=== PATIENT | female | born 1995 | race Caucasian/White ===

== ENCOUNTER 2016-05-18 12:59 | Emergency (ER) | payer MEDICAID ==
[2016-05-18 13:04] VITALS: O2SAT 96
[2016-05-18] MEDS ORDERED: ONDANSETRON 4 MG/2 ML VIAL IVP ONE (13:25)
[2016-05-18] MEDS ORDERED: NS 1,000 ML IV ONE ×2 (13:25→13:38)
[2016-05-18] MEDS ORDERED: HYDROmorphONE/DILAUDID 1 MG/ML SYR IVP ONE (13:25)
--- NOTE | 2016-05-18 13:32 | EDPHY ---
H & P Time Seen by Provider: 05/18/16 13:15 HPI/ROS: CHIEF COMPLAINT: Abdominal pain HISTORY OF PRESENT ILLNESS: The patient is a 20 year old female presenting with abdominal pain that she woke up with in the middle of the night. Her pain is diffuse. It has remained constant since onset with associated nausea. The patient has history of Gilbert's syndrome. She was recently started on a trial diet by her doctor at [facility]. She states she has only been drinking smoothies since starting this diet but ate tacos last night. She denies vaginal discharge. No vomiting or diarrhea. LMP 2 weeks ago. REVIEW OF SYSTEMS: Aside from elements discussed in the HPI, a comprehensive 10-point review of systems was reviewed and is negative. Past Medical/Surgical History: Gilbert disease, Depression, Migraines. Social History: [employer] student. Smoking Status: Never smoked Physical Exam: General Appearance: Alert, no distress Eyes: Pupils equal and round, no conjunctival pallor or injection ENT, Mouth: Mucous membranes moist Neck: Normal inspection Respiratory: Lungs are clear to auscultation Cardiovascular: Regular rate and rhythm Gastrointestinal: LLQ tenderness greater than RLQ tenderness. Neurological: A&O, nonfocal, normal gait Skin: Warm and dry, no rash Extremities: Nontender, no pedal edema Psychiatric: Mood and affect normal, but tearful. Constitutional: Initial Vital Signs Temperature (C) 37.4 C 05/18/16 13:01 Heart Rate 104 H 05/18/16 13:01 Respiratory Rate 18 05/18/16 13:01 Blood Pressure 115/84 H 05/18/16 13:01 O2 Sat (%) 96 05/18/16 13:01 O2 Delivery Mode Room Air Allergies/Adverse Reactions: No Known Allergies Allergy (Unverified 07/07/15 16:18) Home Medications: Medication Instructions Recorded Lexapro 05/18/16 Ondansetron Odt [Zofran Odt 4 mg 4 mg PO Q4 PRN #6 tab 05/18/16 (*)] traMADol 05/18/16 Medical Decision Making - Diagnostics Imaging: Study: Ultrasound of the abdomen/pelvis was obtained. Results: negative. Images were interpreted by the radiologist. I viewed the images myself on the PACS system. ED Course/Re-evaluation: This pt presents with lower abd pain and nausea. stat preg test negative; no ectopic . stat pelvis/RLQ sono ordered to r/o ovarian torsion/appy. IV was established. Patient received 0.5mg Dilaudid IV, 2L normal saline, and 4mg Zofran IV. 2:30 p.m.-the patient feels better, nausea has resolved, minimal pain. Abdomen is soft with minimal lower abdominal tenderness, non localized. 3:00 p.m.-ultrasound results discussed with the patient. There is no evidence of ovarian cyst/torsion or appendicitis, though the appendix was not visualized on ultrasound. Abdominal pain precautions were given. She was strongly encouraged to follow up in 24 hours if the pain persists. Toradol 30 mg IV given prior to discharge. Differential Diagnosis: Differential diagnosis includes though it is not limited to ectopic , ovarian cyst, ovarian torsion, PID, UTI, appendicitis. - Data Points Laboratory Results: Laboratory Results 05/18/16 13:45 05/18/16 13:45 Medications Given: Discontinued Medications Hydromorphone HCl (Dilaudid) 0.5 mg IVP EDNOW ONE Stop: 05/18/16 13:26 Last Admin: 05/18/16 13:40 Dose: 0.5 mg Sodium Chloride (Ns) 1,000 mls @ 0 mls/hr IV ONCE ONE PRN Reason: Wide Open Stop: 05/18/16 13:26 Last Admin: 05/18/16 13:40 Dose: 1,000 mls Sodium Chloride (Ns) 1,000 mls @ 0 mls/hr IV ONCE ONE PRN Reason: Wide Open Stop: 05/18/16 13:39 Last Admin: 05/18/16 13:55 Dose: Not Given Ketorolac Tromethamine (Toradol) 30 mg IVP EDNOW ONE Stop: 05/18/16 15:06 Last Admin: 05/18/16 15:14 Dose: 30 mg Ondansetron HCl (Zofran) 4 mg IVP EDNOW ONE Stop: 05/18/16 13:26 Last Admin: 05/18/16 13:40 Dose: 4 mg Departure - Departure Disposition: Home, Routine, Self-Care Clinical Impression: Abdominal pain Qualifiers: Abdominal location: lower abdomen, unspecified Qualifier Code: (R10.30) Lower abdominal pain, unspecified Condition: Good Instructions: Acute Abdominal Pain (ED) Additional Instructions: Return in 24 hours if pain persists. Clear liquids for 24 hours. May take Tylenol for pain. Referrals: Mary Cox MD [Medical Doctor] - 1 day, if not improved Prescriptions: Ondansetron Odt [Zofran Odt 4 mg (*)] 4 mg PO Q4 PRN #6 tab PRN Reason: Nausea Report Scribed for: Leigh Hammer Report Scribed by: Linda Gupta Date of Report: 05/18/16 Time of Report: 13:32 Physician Review and Approval Statement: 05/18/16 13:32 Portions of this note were transcribed by a medical detailist. I personally performed the history, physical exam, and medical decision-making; and confirmed the accuracy of the information in the transcribed note.
[2016-05-18 13:59] LABS: % IMMATURE GRANULYOCYTES 0.1 % (0.0-1.1); ABSOLUTE IMMATURE GRANULOCYTES 0.01 10^3/uL (0.00-0.10); ADD DIFF? NO; ADD MORPH? NO; ADD SCAN? NO; ATYPICAL LYMPHOCYTE FLAG 10 (0-99); FRAGMENT RBC FLAG 0 (0-99); HEMATOCRIT 38.9 % (38.0-47.0); HEMOGLOBIN 13.5 g/dL (12.6-16.3); LEFT SHIFT FLG 0 (0-99); LIPEMIA HEMOLYSIS FLAG 90 (0-99); MEAN CELL HEMOGLOBIN 30.5 pg (27.9-34.1); MEAN CELL HEMOGLOBIN CONCENTR. 34.7 g/dL (32.4-36.7); MEAN CELL VOLUME 87.8 fL (81.5-99.8); MEAN PLATELET VOLUME 9.3 fL (8.7-11.7); PLATELET CLUMPS FLAG 0 (0-99); PLATELET COUNT 301 10^3/uL (150-400); RED BLOOD CELL COUNT 4.43 10^6/uL (4.18-5.33); RED CELL DISTRIBUTION WIDTH 12.4 % (11.5-15.2)
[2016-05-18 14:11] LABS: ANION GAP 12 mEq/L (8-16); CALCIUM 10.3 mg/dL (8.5-10.4); CARBON DIOXIDE 25 mEq/l (22-31); CHLORIDE 105 mEq/L (97-110); CREATININE 0.7 mg/dL (0.6-1.0); GLOMERULAR FILTRATION RATE > 60; GLUCOSE 93 mg/dL (70-100); POTASSIUM 4.3 mEq/L (3.5-5.2); SODIUM 142 mEq/L (134-144)
[2016-05-18 14:37] LABS: COLOR YELLOW; LEUKOCYTE ESTERASE,URINE NEGATIVE (NEGATIVE); NITRITE,URINE NEGATIVE (NEGATIVE)
[2016-05-18] MEDS ORDERED: KETOROLAC 30 MG/1 ML SDV IVP ONE (15:05)
[2016-05-18 15:16] VITALS: BP 121/76; PULSE 84; RESP 16; TEMP 97.7
--- NOTE | 2016-05-18 15:27 | US ---
Pelvic Ultrasound May 18, 2016 Indication: Right lower quadrant pain. Possible appendicitis. Technique: Transabdominal and transvaginal imaging. Findings Transabdominal Imaging: The anteverted uterus is normal size measuring 7 cm in length x 5.0 x 3.1 cm . No adnexal mass. Transvaginal Imaging: The ovaries are normal size with small peripheral follicles and normal blood f low on Color Doppler imaging. No ovarian cyst or evidence of torsion. The right ovary measures 3.6 x 3.6 x 1.6. The left ovary measures 3.3 x 3.2 x 1.9 cm. Trace free fluid in the cul-de-sac is likely physiologic. A T-shaped intrauterine device is well-situated high within the endometrial cavity. The endometrial l ining is homogeneous and thin (4 mm). No uterine leiomyomas. Impression: 1. Normal ovaries. No cyst or evidence of torsion. 2. Well-situated intrauterine device. Comment: Results were called to Dr. Leigh Hammer.
--- NOTE | 2016-05-18 15:38 | US ---
Limited Abdominal (Appendiceal) Ultrasound May 18, 2016 Indication: Right lower quadrant pain. Evaluate for appendicitis. Technique: Right lower quadrant was evaluated with a high-resolution linear transducer utilizing grad ed compression. Findings: The appendix could not be identified. No echogenic fat or free fluid in the right lower roby drant. Several shotty lymph nodes are present in the ileocolic distribution Impression: Appendix not identified. No free fluid Comment: Results were discussed with Dr. Leigh Hammer.
== END 2016-05-18 15:28 | disposition home or self-care (01) ==
DX: R10.31 Right lower quadrant pain (principal); R10.32 Left lower quadrant pain; R11.0 Nausea
CPT/HCPCS: 96374; J1170; J1885; J2405